=== PATIENT | male | born 1975 | race Caucasian/White ===

== ENCOUNTER 2017-03-15 13:59 | Day surgery (SDC) | payer OTHER ==
[2017-03-15] MEDS ORDERED: LACTATED RINGERS 1,000 ML IV ONE (14:37)
--- NOTE | 2017-03-15 15:47 | HISTORY & PHYSICAL EXAMINATION ---
HPI - History of Present Illness HPI Comment/Other: Visit Type: Initial Consult Referring Provider: Maged Carroll History of Present Illness: Here for GI bleed. Current Meds: HYDROCODONE-ACETAMINOPHEN 5-325 MG TABS (HYDROCODONE-ACETAMINOPHEN) Take one to two tablets by mouth every six hours as needed for pain Allergies: NKDA Past Medical History: Reviewed history and no changes required: Esophageal reflux Tobacco use Past Surgical History: Reviewed history and no changes required: Right hand fracture with internal fixation with subsequent removal Tonsillectomy as a kid Family History Summary: Reviewed history and no changes required: 01/17/2017 Brother (full) - Has Family History of Other Medical Problems - Crohns - Entered On: 01/17/2017 Social History: Reviewed history and no changes required: Risk Factors: Smoked Tobacco Use: Current every day smoker Cigarettes: Yes -- 1/2 pk pack(s) per day,Drug use: yes Substance: marijuana Alcohol use: yes Drinks per day: 1 Exercise: no Review of Systems See HPI Problems were reviewed with the patient during this visit. Medications were reviewed with the patient during this visit. No known allergies. Physical Exam General: well developed, well nourished, in no acute distress Lungs: clear bilaterally to A & P Heart: regular rate and rhythm, S1, S2 without murmurs, rubs, gallops, or clicks Abdomen: bowel sounds positive; abdomen soft and non-tender without masses, organomegaly, or hernias noted Pulses: pulses normal in all 4 extremities Extremities: no clubbing, cyanosis, edema, or deformity noted with normal full range of motion of all joints Cervical Nodes: no significant adenopathy Psych: alert and cooperative; normal mood and affect; normal attention span and concentration Impression & Recommendations: Problem # 1: GI bleed Will proceed with EGD and colonoscopy. PMH/PSH - Past Medical History Cardiovascular: positive: None Respiratory: positive: None Endocrine/Autoimmune: positive: None GI: positive: Chronic diarrhea, Other HEENT: positive: None Musculoskeletal: positive: Chronic back pain Derm: positive: None MRSA Hx?: No - Past Surgical History General: positive: Colonoscopy Ortho: positive: Other HEENT: positive: Tonsil/Adenoidectomy Social & Family Hx - Social History Does the pt smoke?: Yes Smoking Status: Current every day smoker Does the pt drink ETOH?: No ETOH Use: Beer Does the pt have substance abuse?: Yes Substance Use and Type: Marijuana - POLST Patient has POLST: No Meds/Allgy - Home Medications Home Medications: Ambulatory Orders Medication Instructions Recorded Confirmed HYDROcod/ACETAM 5/325 [[place] 5/325] 1 - 2 ea PO Q6H PRN #10 tablet 05/29/16 Lactobacillus Acidophilus 1 each PO DAILY 03/15/17 03/15/17 [Probiotic Acidophilus] - Allergies Allergies/Adverse Reactions: Allergies Allergy/AdvReac Type Severity Reaction Status Date / Time No Known Drug Allergies Allergy Verified 08/02/16 12:16 Exam - Vital Signs Vital Signs: Vital Signs x48h Temp Pulse Resp BP Pulse Ox 03/15/17 14:21 36.5 C 85 16 115/89 H 96
[2017-03-15] MEDS ORDERED: LIDO GARGLE 30 ML BOTTLE PO ONE (16:06)
[2017-03-15] MEDS ORDERED: KETAMINE 500 MG/10 ML VIAL IVP ONE (16:15)
[2017-03-15] MEDS ORDERED: MIDAZOLAM 2 MG/2 ML VIAL IVP ONE (16:15)
[2017-03-15] MEDS ORDERED: PROPOFOL 200 MG/20 ML VIAL IVP ONE (16:15)
[2017-03-15] MEDS ORDERED: GLYCOPYRROLATE 1 MG/5 ML VIAL IVP ONE (16:15)
[2017-03-15 17:32] VITALS: BP 115/76
== END 2017-03-15 14:00 | disposition home or self-care (01) ==
LOC: SDS 13:59
PROVIDERS: ATTEND Surgery
PROC: 0DBL8ZZ Excision of Transverse Colon, Via Natural or Artificial Opening Endoscopic (ICD-10-PCS; 2017-03-15)
PROC: 0DB68ZX Excision of Stomach, Via Natural or Artificial Opening Endoscopic, Diagnostic (ICD-10-PCS; principal; 2017-03-15 14:45)
PROC: 0DBH8ZZ Excision of Cecum, Via Natural or Artificial Opening Endoscopic (ICD-10-PCS; 2017-03-15 14:45)
DX: K92.2 Gastrointestinal hemorrhage, unspecified (principal); D12.0 Benign neoplasm of cecum; D12.3 Benign neoplasm of transverse colon; K52.9 Noninfective gastroenteritis and colitis, unspecified; K21.9 Gastro-esophageal reflux disease without esophagitis; K31.89 Other diseases of stomach and duodenum; K92.1 Melena; I10 Essential (primary) hypertension; F17.210 Nicotine dependence, cigarettes, uncomplicated
CPT/HCPCS: 43239; 45380; A9270; J7120; 88305

== ENCOUNTER 2017-08-30 13:21 | Outpatient (CLI) | payer OTHER ==
--- NOTE | 2017-08-30 19:32 | XRAY Report ---
TWO VIEW LUMBAR SPINE: 08/30/2017 CLINICAL INDICATION: Back pain. Frontal and lateral views of the lumbar spine demonstrate normal height and alignment of the vertebra l bodies. The disk spaces are preserved. There is no evidence of fracture or subluxation. The ella l gas pattern is normal. IMPRESSION: NORMAL LUMBAR SPINE. JOB #: [id number] EXT JOB #:[id number]
== END 2017-08-30 13:22 | disposition home or self-care (01) ==
LOC: DI.S 13:21
PROVIDERS: ATTEND Nurse Practitioner Family
DX: M54.5 Low back pain (principal)
CPT/HCPCS: 72100

== ENCOUNTER 2018-06-15 08:14 | Outpatient (CLI) | payer OTHER ==
--- NOTE | 2018-06-15 18:39 | XRAY Report ---
Reason: HYPEREXTENSION Procedure Date: 06/15/2018 Accession Number: [id number] / [id number] Procedure: XR - Foot 3 View LT CPT Code: FULL RESULT: EXAM: LEFT FOOT RADIOGRAPHY EXAM DATE: 06/15/2018 08:28 AM. CLINICAL HISTORY: Hyperextension. Left foot pain. COMPARISON: None. TECHNIQUE: 3 views. FINDINGS: Bones: Normal. No fractures or bone lesions. Joints: Normal. No subluxations. Soft Tissues: Normal. No soft tissue swelling. IMPRESSION: Normal foot radiography. RADIA
== END 2018-06-15 08:15 | disposition home or self-care (01) ==
LOC: DI 08:14
PROVIDERS: ATTEND Family Medicine
DX: S99.822A Other specified injuries of left foot, initial encounter (principal)

== ENCOUNTER 2021-04-28 14:53 | Emergency (ER) | payer OTHER ==
[2021-04-28] MEDS ORDERED: SODIUM CHLORIDE 0.9% 1,000 ML IV STA (15:15)
[2021-04-28] MEDS ORDERED: ONDANSETRON 4 MG/2 ML VIAL IVP STA (15:16)
[2021-04-28 15:49] LABS: BASOPHILS % (AUTO) 0.7 %; EOSINOPHILS % (AUTO) 0.4 %; HCT - HEMATOCRIT 44.9 % (42.0-52.0); HGB - HEMOGLOBIN 15.8 g/dL (14.0-18.0); LYMPHOCYTES % (AUTO) 22.4 %; MEAN CORPUSCULAR HEMOGLOBIN 30.8 pg (27.0-31.0); MEAN CORPUSCULAR HGB CONC 35.2 g/dL (32.0-36.0); MEAN CORPUSCULAR VOLUME 87.5 fL (80.0-94.0); MEAN PLATELET VOLUME 9.6 fL (7.4-11.4); MONOCYTES # (AUTO) 0.9 10^3/uL (0.0-1.0); MONOCYTES % (AUTO) 20.6 %; NEUTROPHILS # (AUTO) 2.5 10^3/uL (1.5-6.6); NEUTROPHILS % (AUTO) 55.7 %; PLT - PLATELET COUNT 145 10^3/uL (130-450); RED BLOOD COUNT 5.13 10^6/uL (4.70-6.10); RED CELL DISTRIBUTION WIDTH 11.9 % (12.0-15.0); WHITE BLOOD COUNT 4.5 x10^3/uL (4.8-10.8)
--- NOTE | 2021-04-28 15:56 | ED Physician Documentation ---
PD HPI NVD - Stated complaint Stated Complaint: LOSS OF CONSCIOUSNESS/WEAKNESS - Chief complaint Chief Complaint: Abd Pain - History obtained from History obtained from: Patient - Additonal information Additional information: Patient comes emergency department chief complaint of vomiting, constipation, lightheadedness, and dehydration. He states he was started on Suboxone about a month ago and that since being on it, he has been very constipated. He states it was workable for the first couple weeks but then he began to have increasing trouble with bowel movements. He states he took [id number] Dulcolax and after 4 tablets was finally able to have a large amount of diarrhea. However, he did not feel this was workable at work so has been trying Colace instead. However, this does not seem to be working as well. Patient states that he is passed a little gas but has not had a bowel movement in about 5 days. He has been nauseated and vomiting and at this point cannot hold anything down by the end of the day. He has been able to get his Suboxone down in the mornings, however. No surgical history of the abdomen or pelvis. No chronic GI problems. No fevers or chills. No chest symptoms. No blood in his stools. No blood in his vomit. Review of Systems Ten Systems: 10 systems reviewed and negative Constitutional: reports: Reviewed and negative Eyes: reports: Reviewed and negative Ears: reports: Reviewed and negative Nose: reports: Reviewed and negative Throat: reports: Reviewed and negative Cardiac: reports: Reviewed and negative Respiratory: reports: Reviewed and negative GI: reports: Abdominal Pain, Nausea, Vomiting, Constipation : reports: Reviewed and negative Skin: reports: Reviewed and negative Musculoskeletal: reports: Reviewed and negative Neurologic: reports: Reviewed and negative Psychiatric: reports: Reviewed and negative Endocrine: reports: Reviewed and negative Immunocompromised: reports: Reviewed and negative PD PAST MEDICAL HISTORY - Past Medical History Cardiovascular: None Respiratory: None Endocrine/Autoimmune: None GI: Chronic diarrhea, Other HEENT: None Musculoskeletal: Chronic back pain Derm: None - Past Surgical History Past Surgical History: Yes General: Colonoscopy Ortho: Other HEENT: Tonsil/Adenoidectomy - Present Medications Home Medications: Ambulatory Orders Medication Instructions Recorded Confirmed HYDROcod/ACETAM 5/325 [[place] 5/325] 1 - 2 ea PO Q6H PRN #10 tablet 05/29/16 03/15/17 Lactobacillus Acidophilus 1 each PO DAILY 03/15/17 03/15/17 [Probiotic Acidophilus] Docusate Sodium 100Mg Capsule 100 mg PO DAILY #30 04/28/21 [Colace 100Mg Capsule] Magnesium Citrate 148 ml PO BID PRN #296 ml 04/28/21 Ondansetron Odt [Zofran Odt] 4 mg TL Q6H PRN #10 tablet 04/28/21 - Allergies Allergies/Adverse Reactions: Allergies Allergy/AdvReac Type Severity Reaction Status Date / Time No Known Drug Allergies Allergy Verified 04/28/21 15:12 - Social History Does the pt smoke?: Yes Smoking Status: Current every day smoker Does the pt drink ETOH?: No Does the pt have substance abuse?: Yes - Immunizations Immunizations are current?: Yes Immunizations: TDAP >10years/unknown - POLST Patient has POLST: No PD ED PE NORMAL - Vitals Vital signs reviewed: Yes - General General: Alert and oriented X 3, No acute distress, Well developed/nourished - HEENT HEENT: Atraumatic, PERRL, EOMI, Moist mucous membranes - Neck Neck: Supple, no meningeal sign - Cardiac Cardiac: RRR, No murmur, Strong equal pulses - Respiratory Respiratory: No respiratory distress, Clear bilaterally - Abdomen Abdomen: Soft, Non tender, Non distended - Back Back: No CVA TTP - Derm Derm: Normal color, Warm and dry, No rash - Extremities Extremities: No deformity, No edema, No calf tenderness / cord - Neuro Neuro: Alert and oriented X 3, 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, Normal speech - Psych Psych: Normal mood, Normal affect Results - Vitals Vitals: Oxygen O2 Source Room air - Labs Labs: Laboratory Tests 04/28/21 04/28/21 15:44 15:44 WBC 4.5 L RBC 5.13 Hgb 15.8 Hct 44.9 MCV 87.5 MCH 30.8 MCHC 35.2 RDW 11.9 L Plt Count 145 MPV 9.6 Neut # (Auto) 2.5 Lymph # (Auto) 1.0 L [place] # (Auto) 0.9 Eos # (Auto) 0.0 Baso # (Auto) 0.0 Absolute Nucleated RBC 0.00 Nucleated RBC % 0.0 Sodium 135 Potassium 4.7 Chloride 97 L Carbon Dioxide 27 Anion Gap 11.0 BUN 19 Creatinine 1.0 Estimated GFR (MDRD) 80 L Glucose 89 Calcium 8.9 Total Bilirubin 1.1 H AST 33 ALT 37 Alkaline Phosphatase 50 Total Protein 7.0 Albumin 4.3 Globulin 2.7 Albumin/Globulin Ratio 1.6 Lipase 19 L - Rads (name of study) CT abd/pelvis Radiology: Final report received, EMP read indepedently, See rad report (Possible mild colitis versus lack of distention. Hepatic cysts. Otherwise no acute disease.) PD MEDICAL DECISION MAKING - ED course Complexity details: reviewed results, re-evaluated patient, considered differential, d/w patient ED course: Patient was worked up with labs and CT and treated symptomatically with IV fluids and Zofran. Patient was found to be feeling better after symptomatic treatment. His CT showed colitis versus wall thickening from lack of distention, as well as hepatic cysts. Clinically, the patient did not have symptoms of colitis. I suspected that his lack of bowel movement, given the absence of findings of constipation on CT, may simply be due to the fact that he has been vomiting and not eating much. I discussed that it may be helpful for him to be on a stool softener at baseline, however, given that the Suboxone is likely to cause constipation at some point. I will also give him some ODT Zofran for at home. We have discussed the finding of hepatic cysts, the significance of which I am unsure. The radiologist has not raised concern for an appearance of neoplasm at this point, so I have suggested to the patient that he follow-up on this with his doctor. We discussed the usual indications for return. Departure - Departure Disposition: 01 Home, Self Care Clinical Impression: Constipation Qualifiers: Constipation type: drug induced constipation Qualified Code(s): K59.03 - Drug induced constipation Headache Qualifiers: Headache type: tension-type Headache chronicity pattern: acute headache Intractability: not intractable Qualified Code(s): G44.209 - Tension-type headache, unspecified, not intractable Condition: Stable Instructions: ED Constipation, ED Headache Tension Prescriptions: Docusate Sodium 100Mg Capsule [Colace 100Mg Capsule] 100 mg PO DAILY #30 Magnesium Citrate 148 ml PO BID PRN #296 ml PRN Reason: Constipation Ondansetron Odt [Zofran Odt] 4 mg TL Q6H PRN #10 tablet PRN Reason: Nausea / Vomiting Comments: Your CT scan showed a moderate amount of stool but no evidence of obstruction. Been on the Suboxone will have the side effect of causing constipation. As such, it is probably good for you to be on a daily stool softener such as docusate. You may take 100 mg of this daily, and augment with a laxative if you go more than several days without a bowel movement. Please take the nausea medication as needed. Discharge Date/Time: 04/28/21 18:25
[2021-04-28 15:58] LABS: CALCIUM 8.9 mg/dL (8.5-10.3); POTASSIUM 4.7 mmol/L (3.5-5.0)
[2021-04-28 16:44] LABS: ALBUMIN 4.3 g/dL (3.2-5.5); ALBUMIN/GLOBULIN RATIO 1.6 (1.0-2.2); BILIRUBIN,TOTAL 1.1 mg/dL (0.2-1.0)
[2021-04-28] MEDS ORDERED: KETOROLAC 15 MG/ML VIAL IVP STA ×2 (16:53→18:07)
[2021-04-28] MEDS ORDERED: IOPAMIDOL-300 100 ML VIAL ONE (17:09)
--- NOTE | 2021-04-28 17:56 | CT Report ---
PROCEDURE: Abdomen/Pelvis W INDICATIONS: low abd pain, no bm/flatus CONTRAST: IV CONTRAST: Isovue 300 ml: 100 PO CONTRAST: *NO PO CONTRAST TECHNIQUE: After the administration of intravenous contrast, 5 mm thick sections acquired from the diaphragms to the symphysis. 5 mm thick coronal and sagittal reformats were acquired. For radiation dose reducti on, the following was used: automated exposure control, adjustment of mA and/or kV according to ida ent size. COMPARISON: None. FINDINGS: Image quality: Excellent. ABDOMEN: Lung bases: Lung bases are clear. Heart size is normal. Solid organs: There are multiple low-density nodules in liver. The larger lesions are most likely cy sts. Small lesions are considered indeterminate. Liver is normal in size. Spleen is mildly enlarged m easuring 13.5 cm in length. Gallbladder is normal. Biliary system is non dilated. Pancreas enhance s normally. No adrenal nodules. Kidneys demonstrate normal size and enhancement, without hydronephr osis. Peritoneum and bowel: Bowel loops demonstrate normal wall thickness and caliber. There may be mild colonic wall thickening in sigmoid colon suggesting mild colitis although in the absence of contrast distention, the finding could be caused by artifact. Appendix is normal. There is a moderate amount o f stool in colon. No free fluid or air. Nodes and vessels: No retroperitoneal or mesenteric adenopathy by size criteria. Aorta and inferior vena cava are normal in size. Miscellaneous: No ventral hernias. PELVIS: Genitourinary: Bladder wall thickness is normal. Miscellaneous: No inguinal hernias or adenopathy. Bones: No suspicious bony lesions. No vertebral body compression fractures. IMPRESSION: 1. Mild colonic wall thickening may be present involving the sigmoid colon, suggesting mild colitis. A differential diagnoses is artifact due to lack of distention. 2. A moderate amount of stool in colon. 3. Normal appendix. 4. Mild splenomegaly. 5. There are low-density nodules in liver, most likely hepatic cysts. Several lesions are too small t o further characterize, therefore, considered indeterminate. Reviewed by: Christophe Singer MD on 04/28/2021 4:55 PM [facility] Approved by: Christophe Singer MD on 04/28/2021 4:55 PM AKDT Station ID: [id number]
[2021-04-28 18:25] VITALS: BP 132/74
[2021-04-28] MEDS ORDERED: IOPAMIDOL-300 100 ML VIAL IVP ONE (20:24)
== END 2021-04-28 18:25 | disposition home or self-care (01) ==
LOC: ED 14:53
DX: K59.00 Constipation, unspecified (principal); K76.89 Other specified diseases of liver; F17.200 Nicotine dependence, unspecified, uncomplicated; R51.9 Headache, unspecified
CPT/HCPCS: 36415; 74177; 80053; 83690; 85025; 96374; 96375; 96376; 99284; Q9967